=== PATIENT | female | born 2000 | race Hispanic/Latino ===

== ENCOUNTER 2022-01-26 01:30 | Inpatient (IN) | payer BC ==
[2022-01-26 01:53] LABS: Bilirubin Moderate (Negative); Blood, Urine Trace (Negative); Clarity Clear (Clear); Glucose, Urine (Dipstick) Negative (Negative); Ketone, Urine 80 mg/dL (Negative); Leukocyte Negative (Negative); Nitrite Negative (Negative); Protein, Urine (Dipstick) 100 mg/dL (Neg-Trace); Urobilinogen 0.2 mg/dL (Less than 2)
[2022-01-26 01:59] LABS: Pregnancy Test - Urine (BHCG) Negative (Negative); Pregu Control Bar Appear? YES (CONTROL BAR); Specific Gravity 1.035 (1.002-1.036)
[2022-01-26 02:00] LABS: Pregu Control Background? CLEAR/WHITE (CLR/WHITE)
[2022-01-26 02:01] LABS: Specific Gravity, Urine 1.035 (1.002-1.036)
[2022-01-26 02:04] LABS: Mucous/LPF 1+ LPF (<2+); WBC/HPF 0-3 HPF (0-3)
[2022-01-26] MEDS ORDERED: Sodium Chloride 0.9% 1,000 ML ONE (02:06)
[2022-01-26] MEDS ORDERED: Lidocaine Viscous Sol 2% 15 ml UD Cup ONE (02:06)
[2022-01-26] MEDS ORDERED: Sucralfate 1 GM TAB ONE (02:06)
[2022-01-26] MEDS ORDERED: Pantoprazole 40 MG VIAL ONE (02:06)
[2022-01-26] MEDS ORDERED: Ondansetron PF 4 MG/2 ML Vial ONE (02:06)
[2022-01-26] MEDS ORDERED: diphenhydrAMINE 50 MG/ML VIAL ONE (02:06)
[2022-01-26] MEDS ORDERED: Mag-Al Plus 1200 MG/1200 MG/120 MG/30 ML UDCUP ONE (02:06)
[2022-01-26 02:16] LABS: #Basophils 0.1 thou/uL (0.0-0.2); #Lymphocytes 1.8 thou/uL (1.20-3.40); #Neutrophils 14.2 thou/uL (1.40-6.50); %Basophils 0.4 % (0.0-1.0); %Eosinophils 0.1 % (0.0-10.0); %Lymphocytes 10.6 % (21.0-51.0); %Neutrophils 82.9 % (42.0-75.0); Hemoglobin 13.9 g/dL (12.0-16.0); Mean Corpuscular HGB CONC 32.5 g/dL (32.0-36.0); Mean Corpuscular Hemoglobin 29.8 pg (27.0-31.0); Mean Corpuscular Volume 91.7 fL (78.0-98.0); Mean Platelet Volume 10.1 fL (7.4-10.4); Platelet Count 240 thou/uL (130-400); RBC Distribution Width 11.8 % (11.5-14.5); Red Blood Cell (RBC) Count 4.67 mill/uL (4.20-5.40); White Blood Cell (WBC) Count 17.1 thou/uL (4.8-10.8)
[2022-01-26 02:32] LABS: Amphetamine Not Detected (NotDetected); Barbiturates Screen Not Detected (NotDetected); Benzodiazepine Screen Not Detected (NotDetected); Cocaine Metabolite Screen Not Detected (NotDetected); Medtox Control Line Valid? VALID (VALID); Methadone Not Detected (NotDetected); Methamphetamine Not Detected (NotDetected); Opiate Screen Not Detected (NotDetected); Oxycodone Screen Not Detected (NotDetected); Phencyclidine (PCP) Not Detected (NotDetected); THC/Cannabinoid Screen Detected (NotDetected); Tricyclic Screen Not Detected (NotDetected)
[2022-01-26 02:34] LABS: Chloride 106 mmol/L (98-107); Sodium 141 mmol/L (136-145)
[2022-01-26 02:35] LABS: ALT (SGPT) 24 U/L (8-55); AST (SGOT) 38 U/L (5-34); Acetaminophen Less than 10.0 mcg/mL (10.0-30.0); Albumin 4.9 g/dL (3.5-5.0); Alcohol Less than 10 mg/dL (Less than 10); Alkaline Phosphatase 89 U/L (40-110); Anion Gap 22 mmol/L (10-20); BUN (Urea Nitrogen) 18 mg/dL (7.0-18.7); Bilirubin, Total 1.3 mg/dL (0.2-1.2); Calc. Creatinine Clearance 0 mL/min (70-130); Calcium 9.8 mg/dL (7.8-10.44); Carbon Dioxide 17 mmol/L (22-29); Estimated GFR 83; Globulin 2.9 g/dL (2.4-3.5); Glucose 160 mg/dL (70-105); Lipase 24 U/L (8-78); Protein, Total 7.8 g/dL (6.0-8.3); Salicylate Less than 8.0 mg/dL (15.0-30.0)
[2022-01-26] MEDS ORDERED: Lorazepam 2 MG/ML VIAL ONE ×2 (02:46→13:35)
[2022-01-26] MEDS ORDERED: Morphine 4 MG/ML VIAL ONE (02:47)
[2022-01-26] MEDS ORDERED: Dextrose 5 % And 0.9 % NaCl 1,000 ML ONE (02:50)
[2022-01-26] MEDS ORDERED: Haloperidol Lactate 5 MG/ML VIAL ONE (05:43)
[2022-01-26 06:58] LABS: SARS-CoV-2 NAA Rapid Test Not Detected (NotDetected)
[2022-01-26] MEDS ORDERED: Pantoprazole 40 MG VIAL IVP SCH (09:00)
[2022-01-26] MEDS ORDERED: Iopamidol 370 76% 100 ML VIAL ONE (09:00)
[2022-01-26] MEDS ORDERED: Lorazepam 2 MG/ML VIAL SLOW IVP PRN (09:30)
[2022-01-26] MEDS ORDERED: Ondansetron PF 4 MG/2 ML Vial IVP PRN (09:32)
[2022-01-26] MEDS ORDERED: Ondansetron ODT 4 MG TAB PO PRN (09:33)
[2022-01-26] MEDS: Sodium Chloride 0.9% 1,000 ML IV SCH ×2 (10:03→16:09)
[2022-01-26] MEDS: Morphine 4 MG/ML VIAL SLOW IVP PRN ×2 (10:03→17:17)
[2022-01-26 10:07] VITALS: BMI 17.4
[2022-01-26 11:05] LABS: #Lymphocytes 0.6 thou/uL (1.20-3.40); #Monocytes 0.7 thou/uL (0.11-0.59); #Neutrophils 12.3 thou/uL (1.40-6.50); %Basophils 0.2 % (0.0-1.0); %Lymphocytes 4.7 % (21.0-51.0); %Neutrophils 90.1 % (42.0-75.0); Hemoglobin 11.3 g/dL (12.0-16.0); Mean Corpuscular HGB CONC 31.3 g/dL (32.0-36.0); Mean Corpuscular Hemoglobin 29.4 pg (27.0-31.0); Mean Corpuscular Volume 93.8 fL (78.0-98.0); Platelet Count 161 thou/uL (130-400); RBC Distribution Width 11.7 % (11.5-14.5); Red Blood Cell (RBC) Count 3.84 mill/uL (4.20-5.40); White Blood Cell (WBC) Count 13.7 thou/uL (4.8-10.8)
[2022-01-26 11:14] LABS: ALT (SGPT) 21 U/L (8-55); AST (SGOT) 35 U/L (5-34); Albumin 4.1 g/dL (3.5-5.0); Alkaline Phosphatase 67 U/L (40-110); Anion Gap 14 mmol/L (10-20); BUN (Urea Nitrogen) 13 mg/dL (7.0-18.7); Bilirubin, Total 1.1 mg/dL (0.2-1.2); Calc. Creatinine Clearance 87 mL/min (70-130); Calcium 8.5 mg/dL (7.8-10.44); Carbon Dioxide 20 mmol/L (22-29); Chloride 111 mmol/L (98-107); Estimated GFR 109; Globulin 2.4 g/dL (2.4-3.5); Glucose 122 mg/dL (70-105); Potassium 3.9 mmol/L (3.5-5.1); Protein, Total 6.5 g/dL (6.0-8.3); Sodium 141 mmol/L (136-145)
[2022-01-26] MEDS ORDERED: Sucralfate 1 GM TAB PO SCH (12:00)
[2022-01-26] MEDS ORDERED: Morphine 4 MG/ML VIAL SLOW IVP SCH (13:15)
[2022-01-26] MEDS ORDERED: Ondansetron PF 4 MG/2 ML Vial SLOW IVP SCH (13:15)
[2022-01-26 15:49] VITALS: BP 102/40; TEMP 98.4
== END 2022-01-26 18:00 | disposition short-term general hospital (02) | DRG 384 ==
LOC: NAV ERS 01:30 → NAV ACUTE 07:34
PROVIDERS: ADMIT Family Medicine; ATTEND Family Medicine
DX: K27.9 Peptic ulcer, site unspecified, unspecified as acute or chronic, without hemorrhage or perforation (principal); K29.00 Acute gastritis without bleeding; R11.15 Cyclical vomiting syndrome unrelated to migraine; Z20.822 Contact with and (suspected) exposure to COVID-19; R11.2 Nausea with vomiting, unspecified
CPT/HCPCS: 74177; 80053; 80306; 80307; 81003; 81015; 81025; 83690; 85025; C9113; J1200; J1630; J2060; J2270; J2405; J7042; J7050; Q9967; U0002